=== PATIENT | female | born 1995 | race Caucasian/White ===

== ENCOUNTER 2018-04-07 10:14 | Emergency (ER) | payer OTHER ==
[2018-04-07] MEDS ORDERED: NORMAL SALINE 500 ML IV ONE (11:06)
[2018-04-07 11:28] LABS: ABSOLUTE LYMPHOCYTES (AUTO) 0.7 10^3/uL (0.5-4.7); ABSOLUTE MONOCYTES (AUTO) 0.4 10^3/uL (0.1-1.4); ABSOLUTE NEUT (AUTO) 5.9 10^3/uL (1.7-8.2); BASOPHILS % (AUTO) 0.3 % (0-2); EOSINOPHILS % (AUTO) 0.4 % (0-6); HEMATOCRIT 32.5 % (36.0-47.0); HEMOGLOBIN 11.3 g/dL (12.0-15.5); LYMPHOCYTES % (AUTO) 10.2 % (13-45); MEAN CORPUSCULAR HEMOGLOBIN 30.9 pg (27.0-33.4); MEAN CORPUSCULAR VOLUME 88 fl (80-97); MONOCYTES % (AUTO) 6.2 % (3-13); PLATELET COUNT 153 10^3/uL (150-450); RED BLOOD COUNT 3.68 10^6/uL (3.72-5.28); RED CELL DISTRIBUTION WIDTH 12.3 % (11.5-14.0); SEGMENTED NEUTROPHILS % (AUTO) 82.9 % (42-78); TOTAL CELLS COUNTED % (AUTO) 100 %; WHITE BLOOD COUNT 7.1 10^3/uL (4.0-10.5)
[2018-04-07 11:46] LABS: ANION GAP 7 (5-19); BLOOD UREA NITROGEN 10 mg/dL (7-20); CALCIUM 8.8 mg/dL (8.4-10.2); CARBON DIOXIDE 24 mmol/L (22-30); CHLORIDE 105 mmol/L (98-107); GLUCOSE 134 mg/dL (75-110); POTASSIUM 3.7 mmol/L (3.6-5.0); SODIUM 135.7 mmol/L (137-145)
[2018-04-07 12:48] LABS: APPEARANCE,URINE CLEAR; BILIRUBIN,URINE NEGATIVE (NEGATIVE); COLOR,URINE YELLOW; GLUCOSE, URINE >=500 mg/dL (NEGATIVE); KETONES,URINE 20 mg/dL (NEGATIVE); LEUKOCYTE ESTERASE,URINE TRACE (NEGATIVE); NITRITE,URINE NEGATIVE (NEGATIVE); PROTEIN,URINE NEGATIVE (NEGATIVE); UROBILINOGEN,URINE NEGATIVE mg/dL (<2.0)
[2018-04-07] MEDS ORDERED: CEPHALEXIN 500 MG CAPSULE PO ONE (14:04)
--- NOTE | 2018-04-07 14:06 | ER Document Report ---
ED General - General Chief Complaint: Fainting Stated Complaint: SYNCOPE Time Seen by Provider: 04/07/18 11:03 TRAVEL OUTSIDE OF THE [place] IN LAST 30 DAYS: No - HPI Patient complains to provider of: Passing out episode Notes: Patient coming in for evaluation of a passing out episode while performing glucose tolerance testing for being . Patient is a . Patient stat es no abdominal pain positive motion at the time patient states difficulty in the initial glucose tolerance testing. Patient denies any fevers chills nausea vomiting diarrhea denies any issues prior to her initial glucose tolerance testing. - Related Data Allergies/Adverse Reactions: No Known Allergies Allergy (Unverified 04/07/18 10:23) Past Medical History - Social History Smoking Status: Never Smoker Chew tobacco use (# tins/day): No Frequency of alcohol use: None Drug Abuse: None Family History: Reviewed & Not Pertinent Patient has suicidal ideation: No Patient has homicidal ideation: No Renal/ Medical History: Denies: Hx Peritoneal Dialysis Review of Systems - Review of Systems Constitutional: No symptoms reported EENT: No symptoms reported Cardiovascular: Syncope Respiratory: No symptoms reported Gastrointestinal: No symptoms reported Genitourinary: No symptoms reported Female Genitourinary: No symptoms reported Musculoskeletal: No symptoms reported Skin: No symptoms reported Hematologic/Lymphatic: No symptoms reported Neurological/Psychological: No symptoms reported -: Yes All other systems reviewed and negative Physical Exam - Vital signs Vitals: Resp BP Pulse Ox 20 119/83 99 04/07/18 10:17 04/07/18 10:17 04/07/18 10:17 Interpretation: Normal - General General appearance: Appears well, Alert - HEENT Head: Normocephalic, Atraumatic Eyes: Normal Pupils: PERRL - Respiratory Respiratory status: No respiratory distress Chest status: Nontender Breath sounds: Normal Chest palpation: Normal - Cardiovascular Rhythm: Regular Heart sounds: Normal auscultation Murmur: No - Abdominal Inspection: Gravid female Distension: No distension Bowel sounds: Normal Tenderness: Nontender Organomegaly: No organomegaly - Back Back: Normal, Nontender - Extremities General upper extremity: Normal inspection, Nontender, Normal color, Normal ROM, Normal temperature General lower extremity: Normal inspection, Nontender, Normal color, Normal ROM, Normal temperature, Normal weight bearing. No: Desi's sign - Neurological Neuro grossly intact: Yes Cognition: Normal Orientation: AAOx4 Eddie Coma Scale Eye Opening: Spontaneous [place] Coma Scale Verbal: Oriented [place] Coma Scale Motor: Obeys Commands Eddie Coma Scale Total: 15 Speech: Normal Motor strength normal: LUE, RUE, LLE, RLE Sensory: Normal - Psychological Associated symptoms: Normal affect, Normal mood - Skin Skin Temperature: Warm Skin Moisture: Dry Skin Color: Normal Course - Re-evaluation Re-evalutation: 04/07/18 15:34 heart tones are approximately 158 and 150. Patient's laboratory studies that show slight bacteria in her urine will be sent for culture we will treat with Keflex for astigmatic bacteriuria during . Patient otherwise has normal monitoring strips patient unable to tolerate food here in ER will discharge home - Vital Signs Vital signs: Temp Pulse Resp BP Pulse Ox 98.5 F 91 20 118/69 100 04/07/18 14:08 04/07/18 14:08 04/07/18 12:01 04/07/18 14:08 04/07/18 14:08 - Laboratory Result Diagrams: 04/07/18 11:20 04/07/18 11:20 Laboratory results interpreted by me: 04/07/18 04/07/18 04/07/18 10:21 11:20 11:20 RBC 3.68 L Hgb 11.3 L Hct 32.5 L Seg Neutrophils % 82.9 H Lymphocytes % 10.2 L Sodium 135.7 L Creatinine 0.43 L Glucose 134 H POC Glucose 209 H Urine Glucose (UA) Urine Ketones Ur Leukocyte Esterase 04/07/18 12:25 RBC Hgb Hct Seg Neutrophils % Lymphocytes % Sodium Creatinine Glucose POC Glucose Urine Glucose (UA) >=500 H Urine Ketones 20 H Ur Leukocyte Esterase TRACE H Discharge - Discharge Clinical Impression: Passed out, Asymptomatic bacteriuria Qualifiers: Weeks of gestation: 19 weeks Qualified Code(s): Z3A.19 - 19 weeks gestation of Condition: Good Disposition: HOME, SELF-CARE Instructions: Syncopal Episode ([facility]) Additional Instructions: Laboratory studies monitoring today does not show any critical pathology of highly recommend she drink plenty of fluids please follow-up with your IT GENERALIST. Your urinalysis does show signs of bacteria in it we will send for culture and start you on a medication called Keflex please take this to completion. Prescriptions: Cephalexin Monohydrate [Keflex 500 mg Capsule] 500 mg PO Q6H 5 Days capsule Forms: Return to Work
[2018-04-07 14:09] VITALS: BP 118/69
== END 2018-04-07 14:19 | disposition home or self-care (01) ==
LOC: ER 10:14
DX: O26.892 Other specified pregnancy related conditions, second trimester (principal); R55 Syncope and collapse; R82.71 Bacteriuria; Z3A.19 19 weeks gestation of pregnancy
CPT/HCPCS: 99284; 96360; 36415; 87086; 82962; 85025; 87088; 80048; 81001; J7040